=== PATIENT | male | born 2000 | race Caucasian/White ===

== ENCOUNTER 2022-06-15 21:55 | Emergency (ER) | payer OTHER, SELFPAY ==
--- OUTSIDE RECORDS SUMMARY | 2022-06-15 21:58 | XMS REPORT | Continuity of Care Document ---
:2000 Author Organization [facility] t Address [address] [place] [address] Care Team Providers Name Role Phone Umesh Eric Primary Care Physician STEPHEN ARREOLA Attending Clinician Unavailable ACE NG Attending Clinician Unavailable Stephen Arreola MD Attending Clinician Doctor Unassigned, [place] Attending Clinician Unavailable TANYA CASTILLO Attending Clinician Unavailable Lab, Ang - Db Attending Clinician Unavailable Umesh Eric Attending Clinician UMESH GARCIA Attending Clinician Unavailable BC DOWNEY Attending Clinician Unavailable BC DOWNEY Attending Clinician Unavailable Bc Downey MD Attending Clinician Ace Ceja Attending Clinician Only, Adc Test Attending Clinician Unavailable Brent Soares MD Attending Clinician Pob, Adc Lab Main Attending Clinician Unavailable STEPHEN ARREOLA Admitting Clinician Unavailable Stephen Arreola MD Admitting Clinician ACE NG Admitting Clinician Unavailable Payers Payer Name Policy Type Policy Number Effective Date Expiration Date Jania keane [facility] JOSELYN [id number] 2021 00:00:00 Problems Condition Condition Condition Status Onset Resolution Last Treating Co mments Source Name Details Category Date Date Treatment Clinician Date Nipple Nipple Disease Active 2021-06 Univers discharge discharge 0-18 ity of 00:00: [address] Inflammato Inflammato Disease Active 2021-06 U nivers ry disease ry disease 0-18 [place] of [place] Status Status Disease Active Univers post post 6-29 ity of anterior anterior 00:00: [place] cruciate cruciate 00 Medica l ligament ligament Branch surgery surgery Rupture of Rupture of Disease Active Overview : Univers anterior anterior 5-24 Formattin ity of cruciate cruciate 00:00: g of this Juan as ligament ligament 00 note Medica l of left of left might be Branch knee, knee, different initial initial from the encounter encounter original. 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 Gastroesop Gastroesop Disease Active U madeleine hageal hageal 4-05 ity of reflux reflux 00:00: [place] disease disease 00 Medical without without Branch esophagiti esophagiti s s Allergies, Adverse Reactions, Alerts Allergy Allergy Status Severity Reaction(s) Onset Inactive Treating Comm ents Source Name Type Date Date Clinician NO KNOWN Drug Active Univers ALLERGIE Class ity of S [place] [facility] Social History Social Habit Start Date Stop Date Quantity Comments Source History [facility] University o f Alcohol Std [place] Medical Drinks Branch History [facility] University o f Alcohol Binge [place] [facility] al Branch History [facility] University o f Alcohol Comment [place] [facility] ical [facility] Exposure to 2022-04-12 2022-04-22 Not sure University of SARS-CoV-2 00:00:00 08:03:00 [place] [facility] (event) Branch Alcohol intake 2022-04-22 2022-04-22 Lifetime University of 00:00:00 00:00:00 non-drinker [facility] (finding) Branch Tobacco use and 2021-12-17 2021-12-17 Smokeless tobacco Un iversity of exposure 00:00:00 00:00:00 non-user [place] [facility] History SDOH 2021-09-12 2021-09-12 1 University o f Alcohol Frequency 00:00:00 00:00:00 [facility] Sex Assigned At [birth year] Universit y of 00:00:00 00:00:00 [facility] Smoking Status Start Date Stop Date Source Never smoked tobacco [facility] Medications Ordered Filled Start Stop Current Ordering Indication Dosage Frequency Signature Comments Components Source Medication Medication Date Date Medication? Clinician (SIG) Name Name No known 2021-06 No No known Unive rs medications 0-18 medication it y of 13:06: s [address] lamoTRIgine 2022-0 Yes [id number] 100mg Take 1 Univers (LAMICTAL) 9-23 tablet by ity of 100 mg 00:00: mouth in [place] tablet 00 the Medical morning Branch and 1 tablet in the evening. lamoTRIgine 2022-0 Yes [id number] 50mg Take 2 Univers (LAMICTAL) 9-23 tablets by ity of 25 mg 00:00: mouth in [place] tablet 00 the Medical morning Branch and 2 tablets in the evening. lamoTRIgine 2022-0 Yes [id number] 100mg Take 1 Univers (LAMICTAL) 9-23 tablet by ity of 100 mg 00:00: mouth in [place] tablet 00 the Medical morning Branch and 1 tablet in the evening. lamoTRIgine 2022-0 Yes [id number] 50mg Take 2 Univers (LAMICTAL) 9-23 tablets by ity of 25 mg 00:00: mouth in [place] tablet 00 the Medical morning Branch and 2 tablets in the evening. lamoTRIgine 2022-0 Yes [id number] 100mg Take 1 Univers (LAMICTAL) 9-23 tablet by ity of 100 mg 00:00: mouth in [place] tablet 00 the Medical morning Branch and 1 tablet in the evening. lamoTRIgine 2022-0 Yes [id number] 50mg Take 2 Univers (LAMICTAL) 9-23 tablets by ity of 25 mg 00:00: mouth in [place] tablet 00 the Medical morning Branch and 2 tablets in the evening. lamoTRIgine 2022-0 Yes [id number] 100mg Take 1 Univers (LAMICTAL) 9-23 tablet by ity of 100 mg 00:00: mouth in [place] tablet 00 the Medical morning Branch and 1 tablet in the evening. lamoTRIgine 2022-0 Yes [id number] 50mg Take 2 Univers (LAMICTAL) 9-23 tablets by ity of 25 mg 00:00: mouth in [place] tablet 00 the Medical morning Branch and 2 tablets in the evening. lamoTRIgine 2022-0 Yes [id number] 100mg Take 1 Univers (LAMICTAL) 9-23 tablet by ity of 100 mg 00:00: mouth in [place] tablet 00 the Medical morning Branch and 1 tablet in the evening. lamoTRIgine 2022-0 Yes [id number] 50mg Take 2 Univers (LAMICTAL) 9-23 tablets by ity of 25 mg 00:00: mouth in [place] tablet 00 the Medical morning Branch and 2 tablets in the evening. lamoTRIgine 2022-0 Yes [id number] 100mg Take 1 Univers (LAMICTAL) 9-23 tablet by ity of 100 mg 00:00: mouth in [place] tablet 00 the Medical morning Branch and 1 tablet in the evening. lamoTRIgine 2022-0 Yes [id number] 50mg Take 2 Univers (LAMICTAL) 9-23 tablets by ity of 25 mg 00:00: mouth in [place] tablet 00 the Medical morning Branch and 2 tablets in the evening. lamoTRIgine 2022-0 Yes [id number] 100mg Take 1 Univers (LAMICTAL) 9-23 tablet by ity of 100 mg 00:00: mouth in [place] tablet 00 the Medical morning Branch and 1 tablet in the evening. lamoTRIgine 2022-0 Yes [id number] 50mg Take 2 Univers (LAMICTAL) 9-23 tablets by ity of 25 mg 00:00: mouth in [place] tablet 00 the Medical morning Branch and 2 tablets in the evening. lamoTRIgine 2022-0 Yes [id number] 100mg Take 1 Univers (LAMICTAL) 9-23 tablet by ity of 100 mg 00:00: mouth in [place] tablet 00 the Medical morning Branch and 1 tablet in the evening. lamoTRIgine 2022-0 Yes [id number] 50mg Take 2 Univers (LAMICTAL) 9-23 tablets by ity of 25 mg 00:00: mouth in [place] tablet 00 the Medical morning Branch and 2 tablets in the evening. lamoTRIgine 2022-0 Yes [id number] 100mg Take 1 Univers (LAMICTAL) 9-23 tablet by ity of 100 mg 00:00: mouth in [place] tablet 00 the Medical morning Branch and 1 tablet in the evening. lamoTRIgine 2022-0 Yes [id number] 50mg Take 2 Univers (LAMICTAL) 9-23 tablets by ity of 25 mg 00:00: mouth in [place] tablet 00 the Medical morning Branch and 2 tablets in the evening. lamoTRIgine 2022-0 Yes [id number] 100mg Take 1 Univers (LAMICTAL) 9-23 tablet by ity of 100 mg 00:00: mouth in [place] tablet 00 the Medical morning Branch and 1 tablet in the evening. lamoTRIgine 2022-0 Yes [id number] 50mg Take 2 Univers (LAMICTAL) 9-23 tablets by ity of 25 mg 00:00: mouth in [place] tablet 00 the Medical morning Branch and 2 tablets in the evening. lamoTRIgine 2022-0 Yes [id number] 100mg Take 1 Univers (LAMICTAL) 9-23 tablet by ity of 100 mg 00:00: mouth in [place] tablet 00 the Medical morning Branch and 1 tablet in the evening. lamoTRIgine 2022-0 Yes [id number] 50mg Take 2 Univers (LAMICTAL) 9-23 tablets by ity of 25 mg 00:00: mouth in [place] tablet 00 the Medical morning Branch and 2 tablets in the evening. lamoTRIgine 2022-0 Yes [id number] 100mg Take 1 Univers (LAMICTAL) 9-23 tablet by ity of 100 mg 00:00: mouth in [place] tablet 00 the Medical morning Branch and 1 tablet in the evening. lamoTRIgine 2022-0 Yes [id number] 50mg Take 2 Univers (LAMICTAL) 9-23 tablets by ity of 25 mg 00:00: mouth in [place] tablet 00 the Medical morning Branch and 2 tablets in the evening. lamoTRIgine 2022-0 Yes [id number] 100mg Take 1 Univers (LAMICTAL) 9-23 tablet by ity of 100 mg 00:00: mouth in [place] tablet 00 the Medical morning Branch and 1 tablet in the evening. lamoTRIgine 2022-0 Yes [id number] 50mg Take 2 Univers (LAMICTAL) 9-23 tablets by ity of 25 mg 00:00: mouth in [place] tablet 00 the Medical morning Branch and 2 tablets in the evening. lamoTRIgine 2022-0 Yes [id number] 100mg Take 1 Univers (LAMICTAL) 9-23 tablet by ity of 100 mg 00:00: mouth in [place] tablet 00 the Medical morning Branch and 1 tablet in the evening. lamoTRIgine 2022-0 Yes [id number] 50mg Take 2 Univers (LAMICTAL) 9-23 tablets by ity of 25 mg 00:00: mouth in [place] tablet 00 the Medical morning Branch and 2 tablets in the evening. lamoTRIgine 2022-0 Yes [id number] 100mg Take 1 Univers (LAMICTAL) 9-23 tablet by ity of 100 mg 00:00: mouth in [place] tablet 00 the Medical morning Branch and 1 tablet in the evening. lamoTRIgine 2022-0 Yes [id number] 50mg Take 2 Univers (LAMICTAL) 9-23 tablets by ity of 25 mg 00:00: mouth in [place] tablet 00 the Medical morning Branch and 2 tablets in the evening. lamoTRIgine 2021-0 Yes 300mg Take 3 Uni vers 100 mg 8-29 tablets by ity of tablet 00:00: mouth at [place] [address] bedtime. Medical Branch lamoTRIgine 2021-0 2021- No 300mg Take 3 Un sandra 100 mg 8-29 09-23 tablets by ity of tablet 00:00: 00:00 mouth at [place] 00 :00 bedtime. [facility] Branch lamoTRIgine 2021-0 2021- No 300mg Take 3 Un sandra 100 mg 8-29 09-23 tablets by ity of tablet 00:00: 00:00 mouth at [place] 00 :00 bedtime. Medical [place] No known No No known Unive rs medications 22 medication it y of 14:58: s [place] 09 [facility] Branch lamoTRIgine 2021-0 Yes 300mg Take 3 Uni vers 100 mg 5-16 tablets by ity of tablet 00:00: mouth at [place] 00 bedtime. [facility] Branch lamoTRIgine 2021-0 2021- No 300mg Take 3 Un sandra 100 mg 5-16 08-29 tablets by ity of tablet 00:00: 00:00 mouth at [place] 00 :00 bedtime. [facility] Branch Vital Signs Vital Name Observation Time Observation Value Comments Source Systolic blood 2022-04-22 14:14:00 97 mm[Hg] Univer sity of pressure [place] [facility] Diastolic blood 2022-04-22 14:14:00 59 mm[Hg] Unive rsity of pressure [place] [facility] Heart rate 2022-04-22 14:14:00 55 /min Universi ty of [place] [facility] Body temperature 2022-04-22 14:14:00 36.67 Sridevi Univ ersity of [place] [facility] Body height 2022-04-22 14:14:00 172.7 cm Universi ty of [place] [facility] Body weight 2022-04-22 14:14:00 68.493 kg Universi ty of [place] [facility] BMI 2022-04-22 14:14:00 22.96 kg/m2 Universi ty of [place] [facility] Oxygen saturation in 2022-04-22 14:14:00 100 /min University of Arterial blood by [email or web address] sonia Pulse oximetry Branch Systolic blood 2022-03-26 18:07:00 120 mm[Hg] Univer sity of pressure [place] [facility] Diastolic blood 2022-03-26 18:07:00 73 mm[Hg] Unive rsity of pressure [place] [facility] Heart rate 2022-03-26 18:07:00 51 /min Universi ty of [place] [facility] Body temperature 2022-03-26 18:07:00 36.67 Sridevi Univ ersity of [place] [facility] Body height 2022-03-26 18:07:00 172.7 cm Universi ty of [place] [facility] Body weight 2022-03-26 18:07:00 65.908 kg Universi ty of [place] [facility] BMI 2022-03-26 18:07:00 22.09 kg/m2 Universi ty of [place] [facility] Oxygen saturation in 2022-03-26 18:07:00 99 /min University of Arterial blood by [email or web address] sonia Pulse oximetry Branch Systolic blood 2022-03-01 16:18:00 116 mm[Hg] Univer sity of pressure [place] [facility] Diastolic blood 2022-03-01 16:18:00 78 mm[Hg] Unive rsity of pressure [place] [facility] Heart rate 2022-03-01 16:18:00 52 /min Universi ty of [place] [facility] Body weight 2022-03-01 16:18:00 65.772 kg Universi ty of [place] [facility] Oxygen saturation in 2022-03-01 16:18:00 100 /min University of Arterial blood by [facility] Pulse oximetry Branch Body height 2022-01-28 19:30:00 172.7 cm [facility] Body weight 2022-01-28 19:30:00 63.957 kg [facility] BMI 2022-01-28 19:30:00 21.44 kg/m2 [facility] Procedures Procedure Date / Time Performing Clinician Source Performed REFERRAL- 2022-05-09 06:01:00 Doctor Unassigned, No Univer [facility]ity of [place] REQUEST/RESPONSE Name Medical Branch REFERRAL- 2022-03-21 05:01:00 Doctor Unassigned, No Univer [facility]ity of [place] REQUEST/RESPONSE Name Medical Branch REFERRAL- 2022-03-07 05:01:00 Doctor Unassigned, No Univer [facility]ity of [place] REQUEST/RESPONSE Name Medical Branch AUTHORIZATION FOR 2022-03-01 05:01:00 Doctor Unassigned, No Univ ersity of [place] RELEASE OF PHI Name Medical Branch REFERRAL- 2022-01-18 05:01:00 Doctor Unassigned, No Univer sity of [place] REQUEST/RESPONSE Name Medical Branch REFERRAL- 2021-12-20 05:01:00 Doctor Unassigned, No Univer [facility]ity of [place] REQUEST/RESPONSE Name Medical Branch Encounters Start End Encounter Admission Attending Care Care Encounter Source Date/Time Date/Time Type Type Clinicians Facility Department ID 2021-11-27 Outpatient Urmila ARREOLA [facility] SOR [id number] Univers 16:45:50 STEPHEN cr [facility] 2021-11-23 Outpatient Urmila ARREOLA [facility] SOR [id number] Univers 09:57:00 STEPHEN cr [facility] 2021-11-02 Outpatient Urmila ARREOLA [facility] SOR [id number] Univers 11:42:20 STEPHEN cr [facility] 2022-10-28 2022-10-28 Outpatient Urmila NG [facility] [id number] Univers 13:30:00 13:30:00 ACE fany [facility] 2022-05-17 2022-05-17 Telephone Maxwell NVJAIRO 1.2.840.114 [id number] Univers 00:00:00 00:00:00 Stephen [facility] 350.1.13.10 it y of [place] 4.2.7.2.686 Juan as SEBASTIAN?BLEA [phone] [place] [facility] [address] MEDICAL OFFICE BUILDING 2022-05-09 2022-05-09 Orders Doctor ANDIE 1.2.840.114 [id number] Univers 00:00:00 00:00:00 Only Unassigned, DEWAYNE 350.1.13.10 ity of [place] [facility] 4.2.7.2.686 Juan as [phone] [address] 2022-04-30 2022-04-30 Outpatient R JONATHAN [facility] [id number] Univers 08:00:00 08:00:00 TANYA fany [facility] 2022-04-22 2022-04-22 Tobacco Blender Lab, [facility] 1.2.840.1 [id number] Univers 08:45:00 09:00:00 Visit Umesh Garcia [facility] 350.1.13.10 ity of [place] 4.2.7.2.686 Juan as SEBASTIAN?BLEA [phone] [place] [facility] [address] MEDICAL OFFICE [facility] 2022-04-22 2022-04-22 Outpatient R JOSE [facility] [id number] Univers 08:00:00 08:39:24 UMESH shaye [facility] 2022-04-22 2022-04-22 [facility] 1.2.840.114 [id number] Univers 08:00:00 08:39:24 Visit [facility] 350.1.13.10 it y of [place] 4.2.7.2.686 Juan as SEBASTIAN?BLEA [id number] [address] MEDICAL OFFICE [facility] 2022-04-16 2022-04-16 Outpatient Urmila CASTILLO [facility] [id number] Univers 08:00:00 08:00:00 TANYA cr [facility] 2022-03-30 2022-03-30 Telephone Jose [facility] [id number] Univers 00:00:00 00:00:00 [facility] 350.1.13.10 it y of [place] 4.2.7.2.686 Juan as SEBASTIAN?BLEA [phone] [address] MEDICAL OFFICE [facility] 2022-03-26 2022-03-26 Outpatient R JOSE [facility] [id number] Univers 13:30:00 13:32:58 UMESH cr [facility] 2022-03-26 2022-03-26 Office Jose [facility] 1.2.840.114 [id number] Univers 13:30:00 13:32:58 Visit Umesh [facility] 350.1.13.10 it y of [place] 4.2.7.2.686 Juan as SEBASTIAN?BLEA [phone] [address] MEDICAL OFFICE [facility] 2022-03-21 2022-03-21 Orders Doctor ANDIE 1.2.840.114 [id number] Univers 00:00:00 00:00:00 Only Unassigned, DEWAYNE 350.1.13.10 ity of [place] [facility] 4.2.7.2.686 Juan as [id number] [address] 2022-03-07 2022-03-07 Orders Doctor CHAVES 1.2.840.114 [id number] Univers 00:00:00 00:00:00 Only Unassigned, DEWAYNE 350.1.13.10 ity of [place] [facility] 4.2.7.2.686 Juan as [phone] [address] 2022-03-01 2022-03-01 Outpatient R BC DOWNEY [facility] [id number] Univers 10:40:00 11:32:21 BC DOWNEY ity [facility] 2022-03-01 2022-03-01 Office Nasreen [facility] 1.2.840.114 [id number] Univers 10:40:00 11:32:21 Visit Bc Faith [facility] 350.1.13.10 ity of [place] 4.2.7.2.686 Juan as SEBASTIAN?BLEA [phone] [address] OFFICE [facility] 2022-03-01 2022-03-01 Orders Doctor CHAVES 1.2.840.114 [id number] Univers 00:00:00 00:00:00 Only Unassigned, DEW[place] 350.1.13.10 ity of [place] [facility] 4.2.7.2.686 Juan as [phone] [address] 2022-02-04 2022-02-04 Anabella Downey [facility] 1.2.840.114 [id number] Univers 00:00:00 00:00:00 Bc Marcell [facility] 350.1.13.10 ity of [place] 4.2.7.2.686 Juan as SEBASTIAN?BLEA [phone] [place] [facility] [address] MEDICAL OFFICE [facility] 2022-01-28 2022-01-28 Office [facility] 1.2.840.114 [id number] Univers 14:45:00 15:00:00 Visit Aec [facility] 350.1.13.10 it y of [place] 4.2.7.2.686 Juan as SEBASTIAN?BLEA [phone] [place] gladiskasandra GREG[place] [address] [facility] OFFICE [facility] 2022-01-28 2022-01-28 [facility] [id number] Univers 14:45:00 14:45:00 [facility] 2022-01-28 2022-01-28 [facility] [id number] Univers 14:45:00 14:45:00 [facility] 2022-01-18 2022-01-18 Outpatient R JOSE [facility] [id number] Univers 13:30:00 13:30:00 UMESH [facility] [place] 2022-01-18 2022-01-18 Namita Garcia [facility] 1.2.840.114 [id number] Univers 00:00:00 00:00:00 [facility] 350.1.13.10 it y of [place] 4.2.7.2.686 Juan as SEBASTIAN?BLEA [id number] [place] [address] [facility] OFFICE [facility] 2022-01-18 2022-01-18 Orders Doctor CHAVES 1.2.840.114 [id number] Univers 00:00:00 00:00:00 Only Unassigned, DEWAYNE 350.1.13.10 ity of [place] [facility] 4.2.7.2.686 Juan as [id number] [address] 2021-12-26 2021-12-26 Orders Doctor ANDIE 1.2.840.114 [id number] Univers 00:00:00 00:00:00 Only Unassigned, DEWAYNE 350.1.13.10 ity of [place] [facility] 4.2.7.2.686 Juan as [phone] [address] 2021-12-20 2021-12-20 Orders Doctor ANDIE 1.2.840.114 [id number] Univers 00:00:00 00:00:00 Only Unassigned, DEWAYNE 350.1.13.10 ity of [place] [facility]PITAL 4.2.7.2.686 Juan as [id number] [address] 2021-12-17 2021-12-17 Outpatient [facility] [id number] Univers 14:00:00 14:56:34 [facility] 2021-12-17 2021-12-17 Office [facility] 1.2.840.114 [id number] Univers 14:00:00 14:15:00 Visit [facility] 350.1.13.10 it y of [place] 4.2.7.2.686 Juan as SEBASTIAN?BLEA [phone] [place] [address] 2021-12-17 2021-12-17 Outpatient [facility] [id number] Univers 14:00:00 14:00:00 [facility] 2021-12-11 2021-12-11 Outpatient [facility] [id number] Univers 13:15:00 13:15:00 [facility] 2021-12-11 2021-12-11 Outpatient [facility] [id number] Univers 13:15:00 13:15:00 [facility] 2021-12-05 2021-12-05 Office [facility] 1.2.840.114 [id number] Univers 14:30:00 14:45:00 Visit [facility] 350.1.13.10 it y of [place] 4.2.7.2.686 Juan as SEBASTIAN?BLEA [phone] [place] COLT [address] MEDICAL OFFICE BUILDING 2021-12-05 2021-12-05 Outpatient R HERNANDEZ [facility] [id number] Univers 14:30:00 14:30:00 ACE cr [facility] 2021-12-03 2021-12-03 Outpatient R MAXWELL [facility] SOR [id number] Univers 06:25:00 11:02:00 STEPHEN rodriguezfany [facility] 2021-12-03 2021-12-03 Hospital [facility] 1.2.840.114 [id number] Univers 06:25:00 11:02:00 Encounter Stephen FAUSTIN 350.1.13.10 ity [facility] 4.2.7.2.686 [place] [id number] [facility] 071 Branch 2021-12-03 2021-12-03 Surgery [facility] 1.2.695.003 [id number] Univers 07:15:00 09:24:00 Stephen FAUSTIN 350.1.13.10 i ty of [place]2.7.2.[place] [phone] [facility] 020 Branch 2021-11-30 2021-11-30 Laboratory Only, Adc Test [facility] 1.2.840. 114 [id number] Univers 14:30:00 14:45:00 Only Brent Soares 350.1.13.10 ity of [place] 4.2.7.2.686 [facility] [id number] [facility] [address] 2021-11-30 2021-11-30 Outpatient R MAXWELL [facility] [id number] Univers 14:30:00 14:30:00 STEPHEN cr [facility] 2021-11-29 2021-11-29 Outpatient R HERNANDEZ [facility] [id number] Univers 13:30:00 14:17:17 ACE cr [facility] 2021-11-29 2021-11-29 Office [facility] 1.2.840.114 [id number] Univers 13:30:00 13:45:00 Visit [facility] 350.1.13.10 it y of [place] 4.2.7.2.686 Juan as SEBASTIAN?BLEA [id number] [place] dickasandra GREG[place] [address] [facility] OFFICE [facility] 2021-11-29 2021-11-29 Outpatient R HERNANDEZ [facility] [id number] Univers 13:30:00 13:30:00 ACE ity [facility] 2021-11-26 2021-11-26 Telephone [facility] 1.2.840.114 [id number] Univers 00:00:00 00:00:00 Stephen [facility] 350.1.13.10 it y of [place] 4.2.7.2.686 Juan as SEBASTIAN?BLEA [id number] [place] dickasandra GREG[place] 198 [facility] 2021-11-26 2021-11-26 Telephone [facility] 1.2.840.114 [id number] Univers 00:00:00 00:00:00 Stephen [facility] 350.1.13.10 it y of [place] 4.2.7.2.686 Juan as SEBASTIAN?BLEA [phone] [place] GREG[place] 198 [facility] 2021-11-23 2021-11-23 Laboratory Only, Adc Test [facility] 1.2.840. 114 [id number] Univers 08:45:00 09:00:00 Only Stephen Arreola 350.1.13.10 ity of [facility] 4.2.7.2.686 [place] [facility] [id number] [address] 2021-11-23 2021-11-23 Outpatient R MAXWELL [facility] [id number] Univers 08:45:00 08:45:00 STEPHEN cr [facility] 2021-11-19 2021-11-19 Tobacco Blender Arvin, Adc Lab Main [facility] 1.2.8 40.114 [id number] Univers 09:00:00 09:15:00 Visit Stephen Arreola 350.1.13.10 ity of [facility] 4.2.7.2.686 [place] [facility] [phone] [place] dickasandra [facility] 353 [facility] 2021-11-19 2021-11-19 Outpatient R MAXWELL [facility] [id number] Univers 09:00:00 09:00:00 STEPHEN cr [facility] 2021-11-19 2021-11-19 Outpatient R MAXWELL [facility] [id number] Univers 09:00:00 09:00:00 STEPHEN cr [facility] 2021-11-19 2021-11-19 Laboratory Only, Adc Test [facility] 1.2.840. 114 [id number] Univers 08:45:00 09:00:00 Only Stephen Arreola [id number] ity of [place] [id number] [facility] [phone] [facility] [address] 2021-11-19 2021-11-19 Orders Doctor ANDIE 1.2.840.114 [id number] Univers 00:00:00 00:00:00 Only Unassigned, DEWAYNE [id number] ity of [place] [facility] [id number] Juan as [phone] [facility] [address] 2021-11-06 2021-11-06 Telephone Maxwell [facility] 1.2.840.114 [id number] Univers 00:00:00 00:00:00 Stephen CROUCH [id number] it y of [place] [id number] Juan as SEBASTIAN?BLEA [phone] [place] jessica [address] MEDICAL OFFICE [facility] 2021-10-30 2021-10-30 Telephone Arreola [facility] 1.2.840.114 [id number] Univers 00:00:00 00:00:00 Stephen Hooks [facility] [id number] it y of [place] [id number] Juan as SEBASTIAN?BLEA [phone] [place]ess[place] [address] MEDICAL OFFICE BUILDING 2021-10-29 2021-10-29 Outpatient R HERNANDEZ [facility] [id number] Univers 15:00:00 15:40:37 ACE itfany of [facility] 2021-10-29 2021-10-29 Office Hernandez [facility] 1.2.840.114 [id number] Univers 15:00:00 15:15:00 Visit [facility] [id number] it y of [place] [id number] Juan as SEBASTIAN?BLEA [phone] [place]essica GREGORY [address] [facility] OFFICE [facility] 2021-10-29 2021-10-29 Outpatient R HERNANDEZ [facility] [id number] Univers 15:00:00 15:00:00 ACE ity of [facility] 2021-10-29 2021-10-29 Prep For Arreola [facility] 1.2.840.114 [id number] Univers 00:00:00 00:00:00 Surgery [facility] [id number] it y of [place] [id number] Juan as SEBASTIAN?BLEA [phone] [place]essica GREGORY [address] [facility] OFFICE [facility] 2021-10-24 2021-10-24 Telephone [facility] 1.2.840.114 [id number] Univers 00:00:00 00:00:00 [facility] [id number] [facility] [id number] Juan as SEBASTIAN?BLEA [phone] [place]essica GREGORY 092 [facility] 2021-10-24 2021-10-24 Telephone [facility] 1.2.840.114 [id number] Univers 00:00:00 00:00:00 Bc TrustedAd [facility] [id number] ity of [employer] [facility] [place] [id number] Juan as SEBASTIAN?BLEA [phone] [place] GREGORY [address] [place] [address] 2021-10-22 2021-10-22 Telephone [facility] 1.2.840.114 [id number] Univers 00:00:00 00:00:00 JumpLinc [facility] [id number] ity of [place] [id number] Juan as SEBASTIAN?BLEA [phone] [place] GREGORY [address] [place] [address] 2021-10-18 2021-10-18 Telephone [facility] 1.2.840.114 [id number] Univers 00:00:00 00:00:00 [employer] [facility] [id number] ity of [place] [id number] Juan as SEBASTIAN?BLEA [phone] [place]ess[place] GREGORY [address] [place] [address] MEDICAL OFFICE BUILDING 2021-10-03 2021-10-03 Outpatient Urmila NG [facility] [id number] Univers 13:56:38 23:59:00 ACE [facility] 2021-10-03 2021-10-03 [facility] 1.2.840.114 [id number] Univers 13:56:38 23:59:00 Encounter Ace Dykes [place] [id number] ity of [place] 4.2.7.2.686 [place] [facility] [phone] [facility] [address] 2021-10-03 2021-10-03 Outpatient Urmila NG [facility] [id number] Univers 00:00:00 00:00:00 ACE fany [facility] 2021-09-25 2021-09-25 Outpatient BC OBRIEN [facility] [id number] Univers 08:00:00 09:23:50 BC DOWNEY [facility] 2021-09-25 2021-09-25 Office Nasreen [facility] 1.2.840.114 [id number] Univers 08:00:00 09:23:50 Visit [facility] [id number] ity of [place] [id number] Juan as SEBASTIAN?BLEA [phone] [place] [address] OFFICE [facility] 2021-09-25 2021-09-25 Outpatient BC OBRIEN [facility] [id number] Univers 08:00:00 08:00:00 BC DOWNEY [facility] 2021-09-25 2021-09-25 Outpatient BC OBRIEN [facility] [id number] Univers 08:00:00 08:00:00 BC DOWNEY [facility] 2021-09-19 2021-09-19 [facility] 1.2.840.114 [id number] Univers 15:25:18 23:59:00 Encounter Ace Jania [place] [id number] ity [facility] [id number] [facility] [phone] [facility] [address] 2021-09-19 2021-09-19 Outpatient Urmila NG [facility] [id number] Univers 00:00:00 23:59:00 ACE ity [facility] 2021-09-12 2021-09-12 [facility] [id number] Univers 16:10:00 23:59:00 [facility] 2021-09-12 2021-09-12 Outpatient Urmila NG [facility] [id number] Univers 16:10:00 23:59:00 [facility] 2021-09-12 2021-09-12 [facility] 1.2.840.114 [id number] Univers 16:00:00 16:44:06 Visit Ace [facility] [id number] it y of [place] [id number] Juan as SEBASTIAN?BLEA [phone] [place] GREGORY [address] [facility] OFFICE [facility] 2021-09-12 2021-09-12 [facility]patient [facility] [id number] Univers 16:00:00 16:44:06 [facility] 2021-09-12 2021-09-12 [facility]patient [facility] [id number] Univers 16:00:00 16:00:00 [facility] 2021-09-11 2021-09-11 [facility], Ang [facility] 1.2.840.1 [id number] Univers 13:45:00 14:00:00 Visit Umesh Garcia [facility] [id number] ity of [place] [id number] Juan as SEBASTIAN?BLEA [phone] [place] GREG[place] [address] [facility] OFFICE [facility] 2021-09-11 2021-09-11 [facility] [id number] Univers 13:00:00 13:44:33 UMESH fany [facility] 2021-09-11 2021-09-11 [facility] 1.2.840.114 [id number] Univers 13:00:00 13:44:33 Visit [facility] [id number] it y of [place] [id number] Juan as SEBASTIAN?BLEA [phone] [place] j[place] [address] MEDICAL OFFICE BUILDING 2021-09-11 2021-09-11 Orders Doctor ANDIE 1.2.840.114 [id number] Univers 00:00:00 00:00:00 Only Unassigned, DEWAYNE [id number] ity of [place] [facility] [id number] Juan as [phone] [place] [address] Branch Results This patient has no known results.
--- NOTE | 2022-06-15 22:49 | ER ---
Nurse's Notes [facility] Name: Sahr Cortez Age: 21 yrs Sex: Male : 2000 Arrival Date: 06/15/2022 Time: 21:57 Bed 11 Private MD: Diagnosis: Cutaneous abscess of right lower limb Presentation: 06/15 22:19 Chief complaint: Patient states: I have like this boil thing on my R lower leg, it was aa9 like a pimple then I popped it and now its like worse. Coronavirus screen: Vaccine status: Patient reports being unvaccinated. Ebola Screen: No symptoms or risks identified at this time. Initial Sepsis Screen: Does the patient meet any 2 criteria? No. Patient's initial sepsis screen is negative. Does the patient have a suspected source of infection? No. Patient's initial sepsis screen is negative. Risk Assessment: Do you want to hurt yourself or someone else? Patient reports no desire to harm self or others. Onset of symptoms was June 15, 2022. 22:19 Method Of Arrival: Ambulatory aa9 22:19 Acuity: FARTUN 4 aa9 Triage Assessment: 22:21 Bite description: bite sustained to lateral aspect of right calf by an unknown animal, aa9 animal information:. General: Appears in no apparent distress. Behavior is calm, cooperative, appropriate for age. Pain: Complains of pain in lateral aspect of right calf. Neuro: Level of Consciousness is awake, alert, obeys commands, Oriented to person, place, time, situation. Cardiovascular: Patient's skin is warm and dry. Respiratory: Airway is patent Respiratory effort is even, unlabored. GI: No signs and/or symptoms were reported involving the gastrointestinal system. : No signs and/or symptoms were reported regarding the genitourinary system. Derm: Rash noted that is raised, on lateral aspect of right calf. Historical: - Allergies: 22:20 grass; aa9 - Home Meds: 23:32 Unable to obtain [Active]; kb3 - PMHx: 22:20 Seizure; aa9 - PSHx: 22:20 L ACL Repair; aa9 - Immunization history:: Client reports having NOT received the Covid vaccine. - Social history:: Smoking status: Patient denies any tobacco usage or history of. Screenin:30 [facility] ED Fall Risk Assessment (Adult) History of falling in the last 3 months, kb3 including since admission No falls in past 3 months (0 pts) Confusion or Disorientation No (0 pts) Intoxicated or Sedated No (0 pts) Impaired Gait No (0 pts) Mobility Assist Device Used No (0 pt) Altered Elimination No (0 pt) Score/Fall Risk Level 0 - 2 = Low Risk Oriented to surroundings, Maintained a safe environment, Educated pt \\T\\ family on fall prevention, incl call for assistance when getting out of bed, Assessed \\T\\ reinforced patient's understanding of fall precautions, Provided non-skid footwear, Hourly rounding (assess needs \\T\\ fall precautionary measures) done, Used ambulatory aids as needed (educated on \\T\\ assisted with), Used gait belt as appropriate. Abuse screen: Denies threats or abuse. Denies injuries from another. Nutritional screening: No deficits noted. Tuberculosis screening: No symptoms or risk factors identified. Assessment: 22:30 General: Appears in no apparent distress. uncomfortable, Behavior is calm, cooperative, kb3 Pt reports abscess to RLE x3 days. Denies fever. Reports "pimple" popped and has been draining. 22:30 Derm: Skin is intact, Skin is pink, warm \\T\\ dry. Abscess located on lateral aspect of kb3 right calf is quarter sized. Vital Signs: 22:19 BP 119 / 83; Pulse 83; Resp 19 S; Temp 98.8(O); Pulse Ox 100% on R/A; Weight 65.77 kg aa9 (R); Height 5 ft. 8 in. (172.72 cm) (R); 23:15 BP 102 / 73; Pulse 80; Resp 20; Pulse Ox 99% ; kb3 22:19 Body Mass Index 22.05 (65.77 kg, 172.72 cm) aa9 ED Course: 21:57 Patient arrived in ED. ja2 22:13 Mamta Dooley FNP-C is [facility]. kb 22:13 Oralia Thayer MD is Attending Physician. kb 22:20 Triage completed. aa9 22:22 Arm band placed on. aa9 22:30 Patient has correct armband on for positive identification. Bed in low position. Call kb3 light in reach. 22:30 No provider procedures requiring assistance completed. Patient did not have IV access kb3 during this emergency room visit. 23:09 Tiffany Shah, RN is Primary Nurse. kb3 Administered Medications: No medications were administered Medication: 22:30 VIS not applicable for this client. kb3 Outcome: 22:49 Discharge ordered by . kb 23:15 Discharged to home ambulatory. kb3 23:15 Condition: stable kb3 23:15 Discharge instructions given to patient, Instructed on discharge instructions, follow up and referral plans. medication usage, Demonstrated understanding of instructions, follow-up care, medications, Prescriptions given X 1. 23:32 Patient left the ED. kb3 Signatures: Mamta Dooley, HOUSE MANAGER-C HOUSE MANAGER-Ckb Melba Norris2 Tasha Benson, RN RN aa9 Tiffany Shah, RN RN kb3 Corrections: (The following items were deleted from the chart) 22:21 22:20 PMHx: L ACL Repair; aa9 aa9 22:21 22:20 PSHx: None; aa9 aa9 23:30 22:30 General: Appears in no apparent distress. uncomfortable, Behavior is calm, kb3 cooperative, Pt reports abscess to RLE x3 days. Denies fever. Reports "pimple" popped and has been draining. kb3 23:32 23:32 Home Meds: Lamictal 100 mg Oral tab 1 tab 2 times per day; kb3 kb3
--- NOTE | 2022-06-15 22:49 | EDPHYS ---
Physician Documentation [facility] Name: Shar Cortez Age: 21 yrs Sex: Male : 2000 Arrival Date: 06/15/2022 Time: 21:57 Bed 11 Private MD: ED Physician Oralia Thayer HPI: 06/15 23:22 This 21 yrs old Male presents to ER via Ambulatory with complaints of Insect Bite, kb Groin Pain. 23:22 The patient presents with an abscess of the lateral aspect of right calf. Description: kb erythematous, swollen, warm. Onset: The symptoms/episode began/occurred 3 day(s) ago. Possible cause(s): unknown. Associated signs and symptoms: Pertinent positives: drainage, erythema, swelling. Modifying factors: the symptoms are alleviated by nothing, the symptoms are aggravated by pressure, squeezing the lesion and expressing the contents, touching. Severity of symptoms: At their worst the symptoms were mild, moderate, in the emergency department the symptoms are unchanged. The patient has not experienced similar symptoms in the past. The patient has not recently seen a physician. Historical: - Allergies: 22:20 grass; aa9 - Home Meds: 23:32 Unable to obtain [Active]; kb3 - PMHx: 22:20 Seizure; aa9 - PSHx: 22:20 L ACL Repair; aa9 - Immunization history:: Client reports having NOT received the Covid vaccine. - Social history:: Smoking status: Patient denies any tobacco usage or history of. ROS: 23:21 Constitutional: Negative for fever, chills, and weight loss. kb 23:21 Skin: Positive for abscess, of the lateral aspect of right calf. 23:21 All other systems are negative. Exam: 23:21 Constitutional: This is a well developed, well nourished patient who is awake, alert, kb and in no acute distress. Head/Face: Normocephalic, atraumatic. ENT: Moist Mucous membranes Cardiovascular: Regular rate and rhythm with a normal S1 and S2. No gallops, murmurs, or rubs. No pulse deficits. Respiratory: Respirations even and unlabored. No increased work of breathing. Talking in full sentences Abdomen/GI: Soft, non-tender. No distention MS/ Extremity: Pulses equal, no cyanosis. Neurovascular intact. Full, normal range of motion. Neuro: Awake and alert, GCS 15, oriented to person, place, time, and situation. Moves all extremities. Normal gait. 23:21 Skin: abscess, that is small, of the lateral aspect of right calf, with drainage, that is purulent, with surrounding cellulitis, that is mild, X3. Vital Signs: 22:19 BP 119 / 83; Pulse 83; Resp 19 S; Temp 98.8(O); Pulse Ox 100% on R/A; Weight 65.77 kg aa9 (R); Height 5 ft. 8 in. (172.72 cm) (R); 23:15 BP 102 / 73; Pulse 80; Resp 20; Pulse Ox 99% ; kb3 22:19 Body Mass Index 22.05 (65.77 kg, 172.72 cm) aa9 MDM: 22:14 Patient medically screened. kb 23:19 Differential diagnosis: Abscess, cellulitis, insect bite. Data reviewed: vital signs, kb nurses notes. Data interpreted: Pulse oximetry: on room air is 100 %. Interpretation: normal. Counseling: I had a detailed discussion with the patient and/or guardian regarding: the historical points, exam findings, and any diagnostic results supporting the discharge/admit diagnosis, the need for outpatient follow up, a family practitioner, to return to the emergency department if symptoms worsen or persist or if there are any questions or concerns that arise at home. ED course: I considered the following discharge prescriptions or medication management in the emergency department: Bactrim prescribed for abscess with cellulitis; Diagnostic test considered but not performed: Ultrasound considered but infection is superficial with no palpable fluctuance; History obtained from: Patient . Administered Medications: No medications were administered Disposition Summary: 06/15/22 22:49 Discharge Ordered Location: Home kb Condition: Stable kb Diagnosis - Cutaneous abscess of right lower limb kb Followup: kb - With: Emergency Department - When: As needed - Reason: Worsening of condition Followup: kb - With: Private Physician - When: 2 - 3 days - Reason: Recheck today's complaints, Continuance of care, Re-evaluation by your physician Discharge Instructions: - Discharge Summary Sheet kb - Skin Abscess, [id number] kb Forms: - Medication Reconciliation Form kb - Thank You Letter kb - Antibiotic Education kb - Prescription Opioid Use kb Prescriptions: - Bactrim DS 800-160 mg Oral Tablet - take 1 tablet by ORAL route every 12 hours for 7 days; 14 tablet; Refills: 0, kb Product Selection Permitted Signatures: Mamta Dooley FNP-C FNP-Ckb Avalos, Aylin, RN RN aa9 Tiffany Shah, RN RN kb3 Corrections: (The following items were deleted from the chart) 22: 22:20 PMHx: L ACL Repair; aa9 22:21 22:20 PSHx: None; aa9 23:32 23:32 Home Meds: Lamictal 100 mg Oral tab 1 tab 2 times per day; kb3 kb3
[2022-06-16 00:50] VITALS: TEMP 98.8
[2022-06-16 00:51] VITALS: BP 102/73; O2SAT 99
== END 2022-06-15 23:32 | disposition home or self-care (01) ==
LOC: ER 21:55
DX: L02.415 Cutaneous abscess of right lower limb (principal)
CPT/HCPCS: 99282

== ENCOUNTER 2024-10-02 17:45 | Emergency (ER) | payer OTHER, SELFPAY ==
--- OUTSIDE RECORDS SUMMARY | 2024-10-02 17:50 | XMS REPORT | Continuity of Care Document ---
Author Name Unknown Address [address] [place] [address] [facility] [place] Address [address] [place] [address] Care Team Providers Care [employer] Architect Name Role Phone UMESH GARCIA Primary Care Physician Unavailab STEPHEN Ocasio Attending Clinician UnavailELDA Harrison Attending Clinician Unavailable Doctor Unassigned, [place] Attending Clinician U carol Lab, Ang - Db Attending Clinician Unavailable Bc Downey MD Attending Clinician [phone] BC DOWNEY Attending Clinician Unavail able BC DOWNEY Attending Clinician Unavail able Ericka Hernandez RN Attending Clinician UnavailBc Morgan MD Attending Clinician [phone] Lab, Ang Patrick Seo Attending Clinician Unavailable UMESH GARCIA Attending Clinician Unavailable ACE NG Attending Clinician Unavailable Fanny Langston LVN Attending Clinician Umesh Morin Attending Clinician [phone] Doctor Unassigned, [place] Attending Clinician U Stephen Law MD Attending Clinician [phone] TANYA CASTILLO Attending Clinician Unavailab Ace Taylor Attending Clinician [phone] Only, Adc Test Attending Clinician Unavailable Brent Soares MD Attending Clinician [phone] Pob, Adc Lab Main Attending Clinician UnavailSTEPHEN Alvarez Admitting Clinician UnavailStephen Alvarez MD Admitting Clinician [phone] ACE NG Admitting Clinician Unavailable Payers Payer Name Policy Type Policy Number Effective Date Expirati on Date Source [facility] [id number] 2021 00:00:00 [facility] [id number] 2023 00:00:00 2024 00:00:00 Problems Condition Name Condition Details Condition Category Status Onset Date Resolution Date Last Treatment Date Treating Clinician Comments Source Cervicalgi a Cervicalgi a Disease Active 10-07 00:00: 00 [facility] Acute midline thoracic back pain Acute midline thoracic back pain Disease Active 10-07 00:00: 00 [facility] History of tics History of tics Disease Active 10-07 00:00: 00 [facility] Nipple discharge Nipple discharge Disease Active 2021-06 00:00: 00 [facility] Inflammato ry disease of breast Inflammato ry disease of breast Disease Active 2021-06 00:00: 00 [facility] Status post anterior cruciate ligament surgery Status post anterior cruciate ligament surgery Disease Active 12-05 00:00: 00 [facility] Rupture of anterior cruciate ligament of left knee, initial encounter Rupture of anterior cruciate ligament of left knee, initial encounter Disease Active 10-30 00:00: 00 Overview: Formattin g of this note might be different from the original. 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, unspecifie d epilepsy type Disease Active 09-11 00:00: 00 [facility] Gastroesop hageal reflux disease without esophagiti s Gastroesop hageal reflux disease without esophagiti s Disease Active 09-11 00:00: 00 [facility] 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, 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, unspecifie d epilepsy type Disease Active 09-11 00:00: 00 [facility] Encounter to establish care Encounter to establish care Disease Active 09-11 00:00: 00 [facility] Allergies, Adverse Reactions, Alerts Allergy Name Allergy Type Status Severity Reaction(s) Onset Date Inactive Date Treating Clinician Comments Source [facility] Active N/V 10-05 00:00: 00 [facility] Jalap Propensi ty to adverse reaction s Active Nausea and/or Vomiting 10-05 00:00: 00 chrispeno [facility] NO KNOWN ALLERGIE S Drug Class Active [facility] Family History Family Member Diagnosis Comments Start Date Stop Date Sourc e Natural [facility] Natural mother Diabetes [facility] Natural [facility] Hy[facility] Natural mother Thyroid [facility] Social History Social Habit Start Date Stop Date Quantity Comments Source History SDOH Alcohol Std Drinks [facility] Sexual [facility] History SDOH Alcohol Binge [facility] History SDOH Alcohol Comment [facility] History of Social function 2024-08-31 00:00:00 2024-08-31 00:00:00 [facility] Alcohol intake 2023-10-06 00:00:00 2023-10-06 00:00:00 Lifetime non-drinker (finding) [facility] Alcoholic beverage intake 2023-10-06 00:00:00 2023-10-06 00:00:00 Lifetime non-drinker (finding) [facility] Exposure to SARS-CoV-2 (event) 2022-09-27 00:00:00 2022-10-07 08:10:00 Not sure [facility] Tobacco use and exposure 2021-12-17 00:00:00 2021-12-17 00:00:00 Smokeless tobacco non-user [facility] History SDOH Alcohol Frequency 2021-09-12 00:00:00 2021-09-12 00:00:00 1 [facility] Sex assigned at 2002 00:00:00 2000 00:00:00 [facility] Smoking Status Start Date Stop Date Source Never smoked tobacco [facility] Medications Ordered Medication Name Filled Medication Name Start Date Stop Date Current Medication? Ordering Clinician Indication Dosage Frequency Signature (SIG) Comments Components Source lamoTRIgine 100 mg tablet 5-0 3-25 00:00: 00 Yes [id number] 100mg Take 1 tablet by mouth in the morning and 1 tablet in the evening. [facility] lamoTRIgine 25 mg tablet 5-0 3-25 00:00: 00 Yes [id number] 50mg Take 2 tablets by mouth in the morning and 2 tablets in the evening. [facility] lamoTRIgine 100 mg tablet 5-0 2-19 00:00: 00 08-31 00:00 :00 No [id number] 100mg TAKE 1 TABLET BY MOUTH IN THE MORNING AND 1 IN THE EVENING [facility] lamoTRIgine 25 mg tablet 5-0 2-19 00:00: 00 08-31 00:00 :00 No [id number] 50mg TAKE 2 TABLETS BY MOUTH IN THE MORNING AND 2 IN THE EVENING [facility] lamoTRIgine 100 mg tablet 2023-0 7- 00:00: 00 07-28 00:00 :00 No [id number] 100mg Take 1 tablet by mouth in the morning and 1 tablet in the evening. [facility] lamoTRIgine 25 mg tablet 2023-0 7- 00:00: 00 07-28 00:00 :00 No [id number] 50mg Take 2 tablets by mouth in the morning and 2 tablets in the evening. [facility] lamoTRIgine 100 mg tablet 4-0 4-29 00:00: 00 12-09 00:00 :00 No [id number] 100mg Take 1 tablet by mouth in the morning and 1 tablet in the evening. Yearly appointmen t needed in September for future refills. [facility] lamoTRIgine 25 mg tablet 4-0 4-29 00:00: 00 12-09 00:00 :00 No [id number] 50mg Take 2 tablets by mouth in the morning and 2 tablets in the evening. [facility] lamoTRIgine 25 mg tablet 0 2-21 00:00: 00 10-05 00:00 :00 No [id number] 50mg Take 2 tablets by mouth every morning and evening. Yearly appointmen t needed in September for future refills. [facility] lamoTRIgine 100 mg tablet 2- 00:00: 00 10-05 00:00 :00 No [id number] 100mg Take 1 tablet by mouth every morning and evening. Yearly appointmen t needed in September for future refills. [facility] tiZANidine 2 mg capsule 5- 00:00: 00 10-05 00:00 :00 No [id number] 2mg Take 1 capsule by mouth 3 (three) times daily as needed for Muscle Spasms. [facility] ibuprofen 600 mg tablet 5- 00:00: 00 10-22 04:59 :00 No [id number] 600mg Take 1 tablet by mouth every 6 (six) hours as needed for Temp > 38.5 C for up to 14 days. [facility] lamoTRIgine (LAMICTAL) 100 mg tablet 4-24 00:00: 00 07-30 00:00 :00 No [id number] 100mg Take 1 tablet by mouth in the morning and 1 tablet in the evening. [facility] lamoTRIgine (LAMICTAL) 25 mg tablet 0 4-24 00:00: 00 07-30 00:00 :00 No [id number] 50mg Take 2 tablets by mouth in the morning and 2 tablets in the evening. [facility] lamoTRIgine (LAMICTAL) 100 mg tablet 2022-0 2-02 00:00: 00 09-30 00:00 :00 No [id number] 100mg Take 1 tablet by mouth in the morning and 1 tablet in the evening. [facility] lamoTRIgine (LAMICTAL) 25 mg tablet 2022-0 2-02 00:00: 00 09-30 00:00 :00 No [id number] 50mg Take 2 tablets by mouth in the morning and 2 tablets in the evening. [facility] No known medications 2021-06 0-18 13:06: 52 No No known medication s [facility] lamoTRIgine (LAMICTAL) 100 mg tablet 03-01 00:00: 00 07-09 00:00 :00 No [id number] 100mg Take 1 tablet by mouth in the morning and 1 tablet in the evening. [facility] lamoTRIgine (LAMICTAL) 25 mg tablet 03-01 00:00: 00 07-09 00:00 :00 No [id number] 50mg Take 2 tablets by mouth in the morning and 2 tablets in the evening. [facility] lamoTRIgine 100 mg tablet 8-29 00:00: 00 03-01 00:00 :00 No 300mg Take 3 tablets by mouth at bedtime. [facility] No known medications 8-22 14:58: 09 No No known medication s [facility] lamoTRIgine 100 mg tablet 5-16 00:00: 00 Yes 300mg Take 3 tablets by mouth at bedtime. [facility] Vital Signs Vital Name Observation Time Observation Value Comments S lakhwinder Systolic blood pressure 2024-08-31 14:51:00 109 mm[Hg] [facility] Diastolic blood pressure 2024-08-31 14:51:00 71 mm[Hg] [facility] Heart rate 2024-08-31 14:51:00 56 /min [facility] Respiratory rate 2024-08-31 14:51:00 20 /min [facility] Body height 2024-08-31 14:51:00 170.2 cm [facility] Body weight 2024-08-31 14:51:00 77.792 kg [facility] BMI 2024-08-31 14:51:00 26.86 kg/m2 [facility] Oxygen saturation in Arterial blood by Pulse oximetry 2024-08-31 14:51:00 99 /min [facility] Systolic blood pressure 2023-10-06 16:08:00 108 mm[Hg] [facility] Diastolic blood pressure 2023-10-06 16:08:00 71 mm[Hg] [facility] Heart rate 2023-10-06 16:08:00 56 /min [facility] 2023-10-06 16:08:00 18 /min [facility] Body height 2023-10-06 16:08:00 172.7 cm [facility] Body weight 2023-10-06 16:08:00 80.876 kg [facility] BMI 2023-10-06 16:08:00 27.11 kg/m2 [facility] Oxygen saturation in Arterial blood by Pulse oximetry 2023-10-06 16:08:00 97 /min [facility] Systolic blood pressure 2022-10-07 13:20:00 107 mm[Hg] [facility] Diastolic blood pressure 2022-10-07 13:20:00 63 mm[Hg] [facility] Heart rate 2022-10-07 13:20:00 63 /min [facility] Body temperature 2022-10-07 13:20:00 36.67 Sridevi [facility] Body height 2022-10-07 13:20:00 172.7 cm [facility] Body weight 2022-10-07 13:20:00 69.446 kg [facility] BMI 2022-10-07 13:20:00 23.28 kg/m2 [facility] Oxygen saturation in Arterial blood by Pulse oximetry 2022-10-07 13:20:00 98 /min [facility] Systolic blood pressure 2022-09-30 21:22:00 122 mm[Hg] [facility] Diastolic blood pressure 2022-09-30 21:22:00 73 mm[Hg] [facility] Heart rate 2022-09-30 21:22:00 56 /min [facility] height 2022-09-30 21:22:00 172.7 cm [facility] Body weight 2022-09-30 21:22:00 68.493 kg [facility] [place] BMI 2022-09-30 21:22:00 22.96 kg/m2 [facility] Systolic blood pressure 2022-04-22 14:14:00 97 mm[Hg] [facility] Diastolic blood pressure 2022-04-22 14:14:00 59 mm[Hg] [facility] Heart rate 2022-04-22 14:14:00 55 /min Unive [facility] Body temperature 2022-04-22 14:14:00 36.67 Sridevi [facility] Body height 2022-04-22 14:14:00 172.7 cm [facility] Body weight 2022-04-22 14:14:00 68.493 kg [facility] BMI 2022-04-22 14:14:00 22.96 kg/m2 [facility] Oxygen saturation in Arterial blood by Pulse oximetry 2022-04-22 14:14:00 100 /min [facility] Systolic blood pressure 2022-03-26 18:07:00 120 mm[Hg] [facility] Diastolic blood pressure 2022-03-26 18:07:00 73 mm[Hg] [facility] Heart rate 2022-03-26 18:07:00 51 /min Unive [facility] Body temperature 2022-03-26 18:07:00 36.67 Sridevi [facility] Body height 2022-03-26 18:07:00 172.7 cm [facility] Body weight 2022-03-26 18:07:00 65.908 kg [facility] BMI 2022-03-26 18:07:00 22.09 kg/m2 [facility] Oxygen saturation in Arterial blood by Pulse oximetry 2022-03-26 18:07:00 99 /min [facility] Systolic blood pressure 2022-03-01 16:18:00 116 mm[Hg] [facility] Diastolic blood pressure 2022-03-01 16:18:00 78 mm[Hg] [facility] Heart rate 2022-03-01 16:18:00 52 /min [facility] weight 2022-03-01 16:18:00 65.772 kg [facility] Oxygen saturation in Arterial blood by Pulse oximetry 2022-03-01 16:18:00 100 /min [facility] Body height 2022-01-28 19:30:00 172.7 cm [facility] Body weight 2022-01-28 19:30:00 63.957 kg [facility] BMI 2022-01-28 19:30:00 21.44 kg/m2 [facility] Systolic blood pressure 2023-10-06 16:08:00 108 mm[Hg] [facility] Diastolic blood pressure 2023-10-06 16:08:00 71 mm[Hg] [facility] Heart rate 2023-10-06 16:08:00 56 /min Unive [facility] Respiratory rate 2023-10-06 16:08:00 18 /min [facility] Body height 2023-10-06 16:08:00 172.7 cm [facility] Body weight 2023-10-06 16:08:00 80.876 kg [facility] BMI 2023-10-06 16:08:00 27.11 kg/m2 [facility] Oxygen saturation in Arterial blood by Pulse oximetry 2023-10-06 16:08:00 97 /min [facility] Body temperature 2022-10-07 13:20:00 36.67 Sridevi [facility] Procedures Procedure Date / Time Performed Performing Clinician Source AUTHORIZATION FOR RELEASE OF PHI 2022-08-16 06:01:00 Doctor Unassigned, [place] [facility] REFERRAL- REQUEST/RESPONSE 2022-06-05 06:01:00 Doctor Unassigned, [place] [facility] REFERRAL- REQUEST/RESPONSE 2022-05-09 06:01:00 Doctor Unassigned, [place] [facility] REFERRAL- REQUEST/RESPONSE 2022-03-21 05:01:00 Doctor Unassigned, [place] [facility] REFERRAL- REQUEST/RESPONSE 2022-03-07 05:01:00 Doctor Unassigned, [place] [facility] AUTHORIZATION FOR RELEASE OF PHI 2022-03-01 05:01:00 Doctor Unassigned, [place] [facility] REFERRAL- REQUEST/RESPONSE 2022-01-18 05:01:00 Doctor Unassigned, [place] [facility] REFERRAL- REQUEST/RESPONSE 2021-12-20 05:01:00 Doctor Unassigned, [place] [facility] HCV ANTIBODY 2021-09-11 18:51[facility] Start Date/Time End Date/Time Encounter Type Admission Type Attending [facility] Care Department Encounter ID Source 2021-11-27 16:45:50 Outpatient STEPHEN CRUZ [facility] [id number] [facility] 2021-11-23 09:57:00 Outpatient STEPHEN CRUZ [facility] [id number] [facility] 2021-11-02 11:42:20 Outpatient STEPHEN CRUZ [facility] [id number] [facility] 2024-10-05 11:30:00 2024-10-05 11:30:00 Outpatient ELDA PAULA [facility] [id number] [facility] 2024-08-05 00:00:00 2024-09-11 18:20:55 Patient Secure Msg Doctor Unassigned, [place] Doctor Unassigned, [place] [facility] 1..840.114 350.1.13.10 4.2.7.2.686 [id number] [facility] 2024-09-03 00:00:00 2024-09-07 09:01:50 Patient Secure Msg Doctor Unassigned, [place] Doctor Unassigned, [place] [facility] 1..840.114 350.1.13.10 4.2.7.2.686 [id number] [facility] 2024-08-31 12:00:00 2024-08-31 12:15:00 Student Services Rep Visit Lab, Ang - Rayray Bc Downey Lab, Ang - [facility] 1.2840.114 350.1.13.10 4.2.7.2.686 [id number] [facility] 2024-08-31 09:40:00 2024-08-31 10:25:29 Outpatient Urmila DOWNEY BC SOLOMON [facility] [id number] [facility] 2024-08-31 09:40:00 2024-08-31 10:25:29 Office Visit Bc Downey [facility] 1.284.114 350.1.13.10 4.2.7.2.686 [id number] [facility] 2024-07-28 00:00:00 2024-07-28 08:57:47 Refill Bc Downey [facility] 1.840.114 350.1.13.10 4.2.7.2.686 [id number] [facility] 2024-02-24 10:40:00 2024-02-24 10:40:00 Outpatient Urmila NASREENBC HOWARD [facility] [id number] [facility] 2024-02-17 00:00:00 2024-02-17 14:19:13 Nurse Triage Ericka Hernandez Teresa D [facility] 1.2840.114 350.1.13.10 4.2.7.2.686 [id number] [facility] 2024-02-17 00:00:00 2024-02-17 09:43:43 Telephone Bc Downey [facility] 1.2840.114 350.1.13.10 4.2.7.2.686 [id number] [facility] 2023-12-10 00:00:00 2023-12-10 13:10:49 Telephone Bc Downey [facility] 1.2.840.114 350.1.13.10 4.2.7.2.686 [id number] [facility] 2023-10-06 12:15:00 2023-10-06 12:30:00 Student Services Rep Visit Lab, Kevin Seo Bc Downey [facility] 1.2.840.114 350.1.13.10 4.2.7.2.686 [id number] [facility] 2023-10-06 10:40:00 2023-10-06 11:53:28 Outpatient BC OBRIEN BC DOWNEY [facility] [id number] [facility] 2023-10-06 10:40:00 2023-10-06 11:53:28 Office Visit Bc Downey [facility] 1.2.840.114 350.1.13.10 4.2.7.2.686 [id number] [facility] 2023-07-30 00:00:00 2023-07-30 00:00:00 Refrg Bc Downey [facility] 1.2.840.114 350.1.13.10 4.2.7.2.686 [id number] [facility] 2022-11-29 13:00:00 2022-11-29 13:00:00 Outpatient ELDA PAULA [facility] [id number] [facility] 2022-11-27 11:00:00 2022-11-27 11:00:00 Outpatient UMESH TURNER [facility] [id number] [facility] 2022-11-19 14:15:00 2022-11-19 14:15:00 Outpatient Urmila ACE NG [facility] [id number] [facility] 2022-10-28 13:30:00 2022-10-28 13:30:00 Outpatient Urmila ACE NG [facility] [id number] [facility] 2022-10-15 00:00:00 2022-10-15 00:00:00 Patient Secure Fanny Zarate [facility] 1..840.114 350.1.13.10 4.2.7.2.686 [id number] [facility] 2022-10-07 08:52:42 2022-10-07 23:59:00 Outpatient UMESH TURNER [facility] [id number] [facility] 2022-10-07 08:00:00 2022-10-07 08:30:00 Office Visit Jose Umesh [facility] 1.2.840.114 350.1.13.10 4.2.7.2.686 [id number] [facility] 2022-09-30 17:00:00 2022-09-30 17:01:50 Student Services Rep Visit Lab, Kevin - [facility] 1.2.840.114 350.1.13.10 4.2.7.2.686 [id number] [facility] 2022-09-30 16:30:00 2022-09-30 17:00:00 [facility] 1.2.840.114 350.1.13.10 4.2.7.2.686 [id number] [facility] 2022-09-30 16:30:00 2022-09-30 16:30:00 Outpatient Urmila DIXONELDA [facility] [id number] [facility] 2022-09-27 16:20:00 2022-09-27 16:20:00 Outpatient BC OBRIEN HOWARD [facility] [id number] [facility] 2022-09-20 00:00:00 2022-09-20 00:00:00 Telephone Bc Downey Marcell [facility] 1.2840.114 350.1.13.10 4.2.7.2.686 [id number] [facility] 2022-09-19 00:00:00 2022-09-19 00:00:00 Telephone [facility]mesh [facility] 1.2840.114 350.1.13.10 4.2.7.2.686 [id number] [facility] 2022-08-30 00:00:00 2022-08-30 00:00:00 Telephone Umesh Garcia [facility] 1.2840.114 350.1.13.10 4.2.7.2.686 [id number] [facility] 2022-08-16 00:00:00 2022-08-16 00:00:00 Orders Only Doctor Unassigned, [place] [facility] 1.2840.114 350.1.13.10 4.2.7.2.686 [id number] [facility] 2022-07-09 00:00:00 2022-07-09 00:00:00 Refill Doctor Unassigned, [place] [facility] 1.2840.114 350.1.13.10 4.2.7.2.686 [id number] [facility] 2022-06-05 00:00:00 2022-06-05 00:00:00 Orders Only Doctor Unassigned, [place] [facility] 1..114 350.1.13.10 4.2.7.2.686 [id number] [facility] 2022-05-17 00:00:00 2022-05-17 00:00:00 Telephone Stephen Arreola [facility] 1.114 350.1.13.10 4.2.7.2.686 [id number] [facility] 2022-05-09 00:00:00 2022-05-09 00:00:00 Orders Only Doctor Unassigned, [place] [facility] 1.84114 350.1.13.10 4.2.7.2.686 [id number] [facility] 2022-04-30 08:00:00 2022-04-30 08:00:00 Outpatient R TANYA CASTILLO [facility] [id number] [facility] 2022-04-22 08:45:00 2022-04-22 09:00:00 Student Services Rep Visit Lab, Umesh Sanders [facility] 1.84.114 350.1.13.10 4.2.7.2.686 [id number] [facility] 2022-04-22 08:00:00 2022-04-22 08:39:24 Outpatient R UMESH GARCIA [facility] [id number] [facility] 2022-04-22 08:00:00 2022-04-22 08:39:24 Office Visit Umesh Garcia [facility] 1.84.114 350.1.13.10 4.2.7.2.686 [id number] [facility] 2022-04-16 08:00:00 2022-04-16 08:00:00 Outpatient R TANYA CASTILLO [facility] [id number] [facility] 2022-03-30 00:00:00 2022-03-30 00:00:00 Telephone Umesh Garcia [facility] 1.84.114 350.1.13.10 4.2.7.2.686 [id number] [facility] 2022-03-30 00:00:00 2022-03-30 00:00:00 Patient Secure Msg Doctor Unassigned, [place] [facility] 1..114 350.1.13.10 4.2.7.2.686 [id number] [facility] 2022-03-26 13:30:00 2022-03-26 13:32:58 Outpatient R JOSE UMESH [facility] [id number] [facility] 2022-03-26 13:30:00 2022-03-26 13:32:58 Office Visit Jose [facility] 1.114 350.1.13.10 4.2.7.2.686 [id number] [facility] 2022-03-21 00:00:00 2022-03-21 00:00:00 Orders Only Doctor Unassigned, [place] [facility] 1.114 350.1.13.10 4.2.7.2.686 [id number] [facility] 2022-03-20 00:00:00 2022-03-20 00:00:00 Telephone Ace Ng [facility] 1.84.114 350.1.13.10 4.2.7.2.686 [id number] [facility] 2022-03-07 00:00:00 2022-03-07 00:00:00 Orders Only Doctor Unassigned, [place] [address].2.840.114 350.1.13.10 4.2.7.2.686 [id number] [facility] 2022-03-01 10:40:00 2022-03-01 11:32:21 Outpatient R BC DOWNEY HOWARD [facility] [id number] [facility] 2022-03-01 10:40:00 2022-03-01 11:32:21 Office Visit Bc Downey [facility] 1.2.840.114 350.1.13.10 4.2.7.2.686 [id number] [facility] 2022-03-01 00:00:00 2022-03-01 00:00:00 Orders Only Doctor Unassigned, [place] [address].2.840.114 350.1.13.10 4.2.7.2.686 [id number] [facility] 2022-02-04 00:00:00 2022-02-04 00:00:00 Refill Bc Downey [facility] 1.2.840.114 350.1.13.10 4.2.7.2.686 [id number] [facility] 2022-01-28 14:45:00 2022-01-28 15:00:00 Office Visit Ace Ng [facility] 1.2.840.114 350.1.13.10 4.2.7.2.686 [id number] [facility] 2022-01-28 14:45:00 2022-01-28 14:45:00 Outpatient R ACE NG [facility] [id number] [facility] 2022-01-28 14:45:00 2022-01-28 14:45:00 Outpatient R ACE NG [facility] [id number] [facility] 2022-01-18 13:30:00 2022-01-18 13:30:00 Outpatient R UMESH GARCIA [facility] [id number] [facility] 2022-01-18 00:00:00 2022-01-18 00:00:00 Abstract KimmyUmesh palma [facility]EL AJabier [facility] 1.2.840.114 350.1.13.10 4.2.7.2.686 [id number] [facility] 2022-01-18 00:00:00 2022-01-18 00:00:00 Orders Only Doctor Unassigned, [place] [facility] 1.2840.114 350.1.13.10 4.2.7.2.686 [id number] [facility] 2021-12-26 00:00:00 2021-12-26 00:00:00 Orders Only Doctor Unassigned, [place] [facility] 1.2840.114 350.1.13.10 4.2.7.2.686 [id number] [facility] 2021-12-20 00:00:00 2021-12-20 00:00:00 Orders Only Doctor Unassigned, [place] [facility] 1.2840.114 350.1.13.10 4.2.7.2.686 [id number] [facility] 2021-12-17 14:00:00 2021-12-17 14:56:34 Outpatient ACE ZUNIGA [facility] [id number] [facility] 2021-12-17 14:00:00 2021-12-17 14:15:00 Office Visit Ace Ng [facility] 1.2840.114 350.1.13.10 4.2.7.2.686 [id number] [facility] 2021-12-17 14:00:00 2021-12-17 14:00:00 Outpatient ACE ZUNIGA [facility] [id number] [facility] 2021-12-11 13:15:00 2021-12-11 13:15:00 Outpatient R ACE NG [facility] [id number] [facility] 2021-12-11 13:15:00 2021-12-11 13:15:00 Outpatient R HERNANDEZ [facility] [id number] [facility] 2021-12-05 14:30:00 2021-12-05 14:45:00 Office Visit Ace Ng [facility] 1.840.114 350.1.13.10 4.2.7.2.686 [id number] [facility] 2021-12-05 14:30:00 2021-12-05 14:30:00 Outpatient R NGACE [facility] [id number] [facility] 2021-12-03 06:25:00 2021-12-03 11:02:00 Outpatient R STEPHEN ARREOLA [facility] [id number] [facility] 2021-12-03 06:25:00 2021-12-03 11:02:00 Hospital Encounter Stephen Arreola [facility] 1.840.114 350.1.13.10 4.2.7.2.686 [id number] [facility] 2021-12-03 07:15:00 2021-12-03 09:24:00 Surgery Stephen Arreola [facility] 1.840.114 350.1.13.10 4.2.7.2.686 [id number] [facility] 2021-11-30 14:30:00 2021-11-30 14:45:00 Laboratory Only Only, Adc Test Brent Soares Craig L [facility] 1..840.114 350.1.13.10 4.2.7.2.686 [id number] [facility] 2021-11-30 14:30:00 2021-11-30 14:30:00 Outpatient R STEPHEN ARREOLA [facility] [id number] [facility] 2021-11-29 13:30:00 2021-11-29 14:17:17 Outpatient R ACE NG [facility] [id number] [facility] 2021-11-29 13:30:00 2021-11-29 13:45:00 Office Visit Ace Ng [facility] 1..840.114 350.1.13.10 4.2.7.2.686 [id number] [facility] 2021-11-29 13:30:00 2021-11-29 13:30:00 Outpatient R ACE NG [facility] [id number] [facility] 2021-11-26 00:00:00 2021-11-26 00:00:00 Telephone Stephen Arreola [facility] 1..840.114 350.1.13.10 4.2.7.2.686 [id number] [facility] 2021-11-26 00:00:00 2021-11-26 00:00:00 Telephone Stephen Arreola [facility] 1..840.114 350.1.13.10 4.2.7.2.686 [id number] [facility] 2021-11-23 08:45:00 2021-11-23 09:00:00 Laboratory Only Only, Adc Test Stephen Arreola [facility] 1..114 350.1.13.10 4.2.7.2.686 [id number] [facility] 2021-11-23 08:45:00 2021-11-23 08:45:00 Outpatient R STEPHEN ARREOLA [facility] [id number] [facility] 2021-11-19 09:00:00 2021-11-19 09:15:00 Student Services Rep Visit Pob, Adc Lab Main Stephen Arreola [facility] 1.114 350.1.13.10 4.2.7.2.686 [id number] [facility] 2021-11-19 09:00:00 2021-11-19 09:00:00 Outpatient R STEPHEN ARREOLA [facility] [id number] [facility] 2021-11-19 09:00:00 2021-11-19 09:00:00 Outpatient R STEPHEN ARREOLA [facility] [id number] [facility] 2021-11-19 08:45:00 2021-11-19 09:00:00 Laboratory Only Only, Adc Test Stephen Arreola [facility] 1..114 350.1.13.10 4.2.7.2.686 [id number] [facility] 2021-11-19 00:00:00 2021-11-19 00:00:00 Orders Only Doctor Unassigned, [place] [facility] 1.114 350.1.13.10 4.2.7.2.686 [id number] [facility] 2021-11-06 00:00:00 2021-11-06 00:00:00 Telephone Stephen Arreola [facility] 1.114 350.1.13.10 4.2.7.2.686 [id number] [facility] 2021-10-30 00:00:00 2021-10-30 00:00:00 Telephone [facility] 1.840.114 350.1.13.10 4.2.7.2.686 [id number] [facility] 2021-10-29 15:00:00 2021-10-29 15:40:37 Outpatient R NG ACE [facility] [id number] [facility] 2021-10-29 15:00:00 2021-10-29 15:15:00 Office Visit Hernandez Ace [facility] 1.840.114 350.1.13.10 4.2.7.2.686 [id number] [facility] 2021-10-29 15:00:00 2021-10-29 15:00:00 Outpatient R HERNANDEZ [facility] [id number] [facility] 2021-10-29 00:00:00 2021-10-29 00:00:00 Prep For Surgery Stephen [facility] 1.840.114 350.1.13.10 4.2.7.2.686 [id number] [facility] 2021-10-24 00:00:00 2021-10-24 00:00:00 Telephone Bc Downey [facility] 1.840.114 350.1.13.10 4.2.7.2.686 [id number] [facility] 2021-10-24 00:00:00 2021-10-24 00:00:00 Telephone Bc Downey [facility] 1.84.114 350.1.13.10 4.2.7.2.686 [id number] [facility] 2021-10-22 00:00:00 2021-10-22 00:00:00 Telephone NasreenBc gonzalez [facility] 1.2.840.114 350.1.13.10 4.2.7.2.686 [id number] [facility] 2021-10-22 00:00:00 2021-10-22 00:00:00 Patient Secure Msg Doctor Unassigned, [place] [facility] 1.2.840.114 350.1.13.10 4.2.7.2.686 [id number] [facility] 2021-10-18 00:00:00 2021-10-18 00:00:00 Telephone Bc Downey [facility] 1.2.840.114 350.1.13.10 4.2.7.2.686 [id number] [facility] 2021-10-03 13:56:38 2021-10-03 23:59:00 Outpatient ACE ZUNIGA [facility] [id number] [facility] 2021-10-03 13:56:38 2021-10-03 23:59:00 [facility] Encounter Ace Ng [facility] 1.2.840.114 350.1.13.10 4.2.7.2.686 [id number] [facility] 2021-10-03 00:00:00 2021-10-03 00:00:00 Outpatient ACE ZUNIGA [facility] [id number] [facility] 2021-09-25 08:00:00 2021-09-25 09:23:50 Outpatient BC OBRIEN HOWARD [facility] [id number] [facility] 2021-09-25 08:00:00 2021-09-25 09:23:50 Office Visit Bc Downey [facility] 1..840.114 350.1.13.10 4.2.7.2.686 [id number] [facility] 2021-09-25 08:00:00 2021-09-25 08:00:00 Outpatient Urmila BC DOWNEY HOWARD [facility] [id number] [facility] 2021-09-25 08:00:00 2021-09-25 08:00:00 Outpatient Urmila NASREEN BC SOLOMON [facility] [id number] [facility] 2021-09-19 15:25:18 2021-09-19 23:59:00 Hospital Encounter Ng Ace [facility] 1..840.114 350.1.13.10 4.2.7.2.686 [id number] [facility] 2021-09-19 00:00:00 2021-09-19 23:59:00 Outpatient Urmila HERNANDEZ ACE [facility] [id number] [facility] 2021-09-12 16:10:00 2021-09-12 23:59:00 Outpatient Urmila NG ACE [facility] [id number] [facility] 2021-09-12 16:10:00 2021-09-12 23:59:00 Outpatient Urmila HERNANDEZ [facility] [id number] [facility] 2021-09-12 16:00:00 2021-09-12 16:44:06 Office Visit Ng [facility] 1.2.840.114 350.1.13.10 4.2.7.2.686 [id number] [facility] 2021-09-12 16:00:00 2021-09-12 16:44:06 Outpatient ACE ZUNIGA [facility] [id number] [facility] 2021-09-12 16:00:00 2021-09-12 16:00:00 Outpatient ACE ZUNIGA [facility] [id number] [facility] 2021-09-11 13:45:00 2021-09-11 14:00:00 Student Services Rep Visit Lab, Kevin Seo Jose [facility] 1.2.840.114 350.1.13.10 4.2.7.2.686 [id number] [facility] 2021-09-11 13:00:00 2021-09-11 13:44:33 Outpatient UMESH TURNER [facility] [id number] [facility] 2021-09-11 13:00:00 2021-09-11 13:44:33 Office Visit Jose [facility] 1.2.840.114 350.1.13.10 4.2.7.2.686 [id number] [facility] 2021-09-11 00:00:00 2021-09-11 00:00:00 Orders Only Doctor Unassigned, [place] [facility] 1.2.840.114 350.1.13.10 4.2.7.2.686 [id number] [facility] Notes Date/Time Note Provider Source 2024-08-31 12:00:00 Images from the original note were not included. Venipuncture collection performed by clean technique on the right anticubitus. Total of 1 attempts were made. Slight pressure and a bandage/dressing were applied to the site(s). The patient experienced no complications. The following specimens were processed according to instructions and sent to [facility] laboratories per lab order on 08/31/2024 : LT BLUE SST RED 1 LAV PPT DK GREEN (LiHep) DK GREEN (SodH) SAEED DK BLUE (K2) DK BLUE (S) ACD Blood Culture NIPT/NTD T [facility] 2024-07-28 08:53:16 JOVON 10/06/23 NOV 10/05/24 Requested Prescriptions Signed Prescriptions Disp Refills lamoTRIgine 100 mg tablet 60 tablet 1 Sig: TAKE 1 TABLET BY MOUTH IN THE MORNING AND 1 IN THE EVENING Authorizing Provider: BC DOWNEY Ordering User: TIN TRAN lamoTRIgine 25 mg tablet 120 tablet 1 Sig: TAKE 2 TABLETS BY MOUTH IN THE MORNING AND 2 IN THE EVENING Authorizing Provider: BC DOWNEY Ordering User: TIN TRAN [facility] 2024-02-18 14:49:42 Noted and thanks for your help. T [facility] 2024-02-17 09:39:44 Spoke with Aida who stated pt was still sleeping. Advised her for pt to schedule f/u appt to discuss med options since meds are not effective at this time. Assisted in scheduling appt. ER precautions given for any worsening s/s or seizure lasting longer than 5 minutes. Aida verbalized understanding and no further questions voiced. T [facility] 2024-02-17 08:32:00 Regarding: Seizure ----- Message from Lindsay Cornejo sent at 02/17/2024 8:31 AM CDT ----- Aida with patient Neurology ADC ?[id number] 23 male ?states they are concerned about medication complications, patient is taking medication like he is supposed to but when he takes the morning dose after a few hours it makes him extremely sleepy to the point that he is not able to do anything; still having seizures just had one this morning around 7:30 AM Please call at [phone] [facility] 2024-02-17 08:32:00 Nurse's Note: 8:33 AM Cindy Cortez is a 23 year old male. Called patient's ECGonzalo. "I called about him having a seizure. He is currently asleep and very out of it." Adult Triage Assessment Last Clinic Visit: 10/06/23 w/neuro for seizures Primary Symptom: seizure (lasted about 5 minutes) Onset / Duration: at 0730 this morning Location / Description: neuro Pain / Severity: is asleep at this moment (per Gonzalo, normal for patient to sleep after seizure) Associated Symptoms: "very out of it" but denies patient is confused just sleepy Fever / Method: denies Hydration: no changes Treatment so far: none Effect on ADL's: significant change LMP: n/a Pre-existing condition / Immunocompromised: seizures Reason for Disposition [1] Seizure lasting < 5 minutes AND [2] history of prior seizure(s) AND [3] taking anticonvulsants Protocols used: [id number] Disposition: After assessment and triage, home care advise given as well as strong ED warnings for any worsening symptoms. Aida verbalized understanding. Routing to clinic for notification and to address medication concerns sent in a separate encounter. Ericka Hernandez RN 02/17/2024 8:[address] [facility] 2024-02-17 08:22:46 Cindy Cortez is a 23 year old male Pt EC Aida calling and states they are concerned about medication complications, patient is taking medication like he is supposed to but when he takes the morning dose after a few hours it makes him extremely sleepy to the point that he is not able to do anything; still having seizures just had one this morning @ 7:30 AM. [phone] states she is with patient Sending assessment to call hub Lindsay Cornejo [facility] 2023-12-10 13:10:05 Previous Rx from 10/06/23 not showing prescription received by the pharmacy. Resending. Requested Prescriptions Signed Prescriptions Disp Refills lamoTRIgine 100 mg tablet 60 tablet 6 Sig: Take 1 tablet by mouth in the morning and 1 tablet in the evening. Authorizing Provider: BC DOWNEY Ordering User: TIN TRAN lamoTRIgine 25 mg tablet 120 tablet 6 Sig: Take 2 tablets by mouth in the morning and 2 tablets in the evening. Authorizing Provider: BC DOWNEY Ordering User: TIN TRAN [facility] 2023-12-10 12:53:31 Cindy Cortez is a 23 year old male Pt states that the pharmacy told him they had requested refills of lamoTRIgine 25 mg tablet and lamoTRIgine 100 mg tablet and have not gotten a response. He is asking if refills can be sent to the pharmacy. [facility] [address] [place] [id number] [facility] 2023-10-06 12:15:00 Images from the original note were not included. Venipuncture collection performed by clean technique on the right anticubitus. Total of 1 attempts were made. Slight pressure and a bandage/dressing were applied to the site(s). The patient experienced no complications. The following specimens were processed according to instructions and sent to [facility] laboratories per lab order on 10/06/2023 : LT BLUE SST 1 RED 1 LAV PPT DK GREEN (LiHep) DK GREEN (SodH) SAEED DK BLUE (K2) DK BLUE (S) ACD Blood Culture NIPT/NTD [facility] 2023-07-30 08:34:55 Requested Prescriptions Signed Prescriptions Disp Refills lamoTRIgine 25 mg tablet 120 tablet 0 Sig: Take 2 tablets by mouth every morning and evening. Yearly appointment needed in September for future refills. Authorizing Provider: ELDA DIXON Ordering User: TIN TRAN lamoTRIgine 100 mg tablet 60 tablet 0 Sig: Take 1 tablet by mouth every morning and evening. Yearly appointment needed in September for future refills. Authorizing Provider: ELDA DIXON Ordering User: TIN TRAN 09/30/22 NOV not scheduled Added in to pt sig that yearly appointment needed in September for further refills. Tran LVN [facility]
--- NOTE | 2024-10-02 19:40 | RAD REPORT ---
EXAM: Hand Left 3 View HISTORY: Possible foreign body;Pain;Swelling COMPARISON: None FINDINGS: Bones: No acute fracture identified. Alignment:No significant malalignment. Degenerative changes:Mild degenerative changes are present the base of the thumb. Other: n/a IMPRESSION: No evidence of acute osseous abnormality involving the imaged hand. No radiopaque foreign body.
--- NOTE | 2024-10-02 20:47 | ER ---
Nurse's Notes [facility] Name: Shar Cortez Age: 23 yrs Sex: Male : 2000 Arrival Date: 10/02/2024 Time: 17:45 Bed 10 Private MD: Diagnosis: Pain in left finger(s) Presentation: 10/02 18:17 Chief complaint: Patient states: thinks he might hand a palm needle stuck in his left iw ring finger for a month. Coronavirus screen: At this time, the client does not indicate any symptoms associated with coronavirus-19. Ebola Screen: No symptoms or risks identified at this time. Initial Sepsis Screen: Does the patient meet any 2 criteria? No. Patient's initial sepsis screen is negative. Does the patient have a suspected source of infection? No. Patient's initial sepsis screen is negative. Risk Assessment: Do you want to hurt yourself or someone else? Patient reports no desire to harm self or others. Onset of symptoms was August 2024. 18:17 Method Of Arrival: Ambulatory iw 18:17 Acuity: FARTUN 4 iw Historical: - Allergies: 18:18 Grass; iw - PMHx: 18:18 Seizure; iw - PSHx: 18:18 L ACL repair; iw - Immunization history:: Last tetanus immunization:. - Infectious Disease History:: Denies. - Social history:: Smoking status: Patient denies any tobacco usage or history of. Assessment: 19:39 General: Appears in no apparent distress. comfortable, Behavior is calm, cooperative, rg5 appropriate for age. Pain: Complains of pain in right index fingernail. 19:39 Neuro: Level of Consciousness is awake, alert, obeys commands, Oriented to person, rg5 place, time, situation. Cardiovascular: No deficits noted. Respiratory: No deficits noted. GI: No signs and/or symptoms were reported involving the gastrointestinal system. : No signs and/or symptoms were reported regarding the genitourinary system. EENT: No deficits noted. Derm: Skin is intact, Skin is dry, Skin is normal, Skin temperature is warm. Musculoskeletal: Circulation, motion, and sensation intact. Range of motion: intact in all extremities. Vital Signs: 18:19 BP 132 / 83; Pulse 80; Resp 16; Temp 98.1; Pulse Ox 100% on R/A; Weight 71.67 kg; iw Height 5 ft. 8 in. ; 20:00 BP 121 / 79; Pulse 80; Resp 18; Pulse Ox 99% ; rg5 18:19 Body Mass Index 24.02 (71.67 kg, 172.72 cm) ED Course: 17:49 Patient arrived in ED. cj3 17:50 Fernando Kramer FNP-C [facility]. dr5 17:50 Jared Kay MD is Attending Physician. dr5 18:18 Triage completed. iw 18:18 Arm band placed on. iw 19:31 Hand Left 3 View XRAY In Process Unspecified. EDMS 19:39 No provider procedures requiring assistance completed. Patient did not have IV access rg5 during this emergency room visit. Administered Medications: No medications were administered Outcome: 20:46 Discharge ordered by . dr5 20:59 Patient left the ED. rg5 Signatures: Dispatcher [employer] EDMS Yanelis Skaggs RN RN Palmer Escobar RN RN rg5 Fernando Kramer FNP-C FNP-[facility]5 Iliana Michaels cj3 Corrections: (The following items were deleted from the chart) 18:19 18:19 BP 132 / 83; Pulse 80bpm; Resp 16bpm; Pulse Ox 100% RA; Temp 98.1F; iw iw
--- NOTE | 2024-10-02 20:47 | EDPHYS ---
Physician Documentation [facility] Name: Shar Cortez Age: 23 yrs Sex: Male : 2000 Arrival Date: 10/02/2024 Time: 17:45 Bed 10 Private MD: ED Physician Jared Kay HPI: 10/02 23:14 This 23 yrs old Male presents to ER via Ambulatory with complaints of Foreign dr5 Body in Finger. 23:14 Patient is a 23-year-old male with history of seizures coming in with a possible dr5 foreign body to the left ring finger that is been going on for over a month. Patient states that he has intermittent pain in his left fourth digit. Up-to-date on all vaccines including tetanus. Historical: - Allergies: 18:18 Grass; iw - PMHx: 18:18 Seizure; iw - PSHx: 18:18 L ACL repair; iw - Immunization history:: Last tetanus immunization:. - Infectious Disease History:: Denies. - Social history:: Smoking status: Patient denies any tobacco usage or history of. ROS: 23:14 Constitutional: as per hpi dr5 Exam: 23:14 Constitutional: This is a well developed, well nourished patient who is awake, alert, dr5 and in no acute distress. Head/Face: Normocephalic, atraumatic. Eyes: Pupils equal round and reactive to light, extra-ocular motions intact. Lids and lashes normal. Conjunctiva and sclera are non-icteric and not injected. Cornea within normal limits. Periorbital areas with no swelling, redness, or edema. Neck: Trachea midline, no thyromegaly or masses palpated, and no cervical lymphadenopathy. Supple, full range of motion without nuchal rigidity, or vertebral point tenderness. No Meningismus. Chest/axilla: Normal chest wall appearance and motion. Nontender with no deformity. No lesions are appreciated. Cardiovascular: Regular rate and rhythm with a normal S1 and S2. Normal PMI, no JVD. No pulse deficits. Respiratory: Lungs have equal breath sounds bilaterally, clear to auscultation. No rales, rhonchi or wheezes noted. No increased work of breathing, no retractions or nasal flaring. Back: No spinal tenderness. No costovertebral tenderness. Full range of motion. Skin: Warm, dry with normal turgor. Normal color with no rashes, no lesions, and no evidence of cellulitis. MS/ Extremity: Pulses equal, no cyanosis. Neurovascular intact. Full, normal range of motion. No swelling / tenderness noted to fourth digit. FROM. No FB noted. Vital Signs: 18:19 BP 132 / 83; Pulse 80; Resp 16; Temp 98.1; Pulse Ox 100% on R/A; Weight 71.67 kg; iw Height 5 ft. 8 in. ; 20:00 BP 121 / 79; Pulse 80; Resp 18; Pulse Ox 99% ; rg5 18:19 Body Mass Index 24.02 (71.67 kg, 172.72 cm) iw MDM: 17:51 Medical Screening Exam initiated dr5 23:14 Differential diagnosis: viral Infection, Foreign Body, Fracture. Data reviewed: vital dr5 signs, nurses notes. Care significantly affected by the following chronic conditions: Seizure. Care significantly affected by the following Social Determinants of Health: Poor access to healthcare and/or lack of insurance, Poor access to transportation, Problems related to employment. Counseling: I had a detailed discussion with the patient and/or guardian regarding the historical points, exam findings, and any diagnostic results supporting the discharge/admit diagnosis, the presence of at least one elevated blood pressure reading (>120/80) during this emergency department visit, radiology results, the need for outpatient follow up, for definitive care, a family practitioner, to return to the emergency department if symptoms worsen or persist or if there are any questions or concerns that arise at home. ED course: Will prescribe Keflex for possible deep foreign body to prevent infection. Recommend patient follow-up primary care doctor for further management as needed. Patient verbalized understanding and will follow primary care doctor. No foreign body noted on x-ray and no foreign body noted on exam. Risk outweighs benefit to do exploratory incision for possible foreign body at this time.. 10/02 18:18 Order name: Hand Left 3 View XRAY; Complete Time: 20:30 dr5 Administered Medications: No medications were administered Disposition Summary: 10/02/24 20:46 Discharge Ordered Notes: Location: Home dr5 Condition: Stable dr5 Diagnosis - Pain in left finger(s) dr5 Followup: dr5 - With: Emergency Department - When: As needed - Reason: Worsening of condition Followup: dr5 - With: Private Physician - When: 1 - 2 days - Reason: Recheck today's complaints, Continuance of care, Re-evaluation by your physician Discharge Instructions: - Discharge Summary Sheet dr5 - Musculoskeletal Pain dr5 Forms: - Medication Reconciliation Form dr5 - Antibiotic Education dr5 - Patient Portal Instructions dr5 - Leadership Thank You Letter dr5 Prescriptions: - Cephalexin 500 mg Oral Capsule - take 1 capsule ORAL route every 12 hours for 10 days; 20 capsule; Refills: 0, dr5 Product Selection Permitted Addendum: 10/04/2024 09:05 Co-signature as Attending Physician, Jared Kay MD I reviewed the patient's care r n provided by the Advanced Practice Provider and agree with the diagnosis and treatment plan. Signatures: Dispatcher [employer] Yanelis Arzate RN RN iw Nieto, Roman, MD MD rn Rhodes, Dustin, TRANSCRIPTION COORDINATOR-C TRANSCRIPTION COORDINATOR-Cdr5
[2024-10-04 22:45] VITALS: TEMP 98.1
[2024-10-04 22:46] VITALS: BP 121/79; O2SAT 99
== END 2024-10-02 20:59 | disposition home or self-care (01) ==
LOC: ER 17:45
DX: M79.645 Pain in left finger(s) (principal)
CPT/HCPCS: 99281